=== PATIENT | female | born 1995 | race Caucasian/White ===

== ENCOUNTER 2017-12-05 22:22 | Emergency (ER) | payer OTHER ==
[2017-12-05] MEDS ORDERED: ONDANSETRON 4 MG/2 ML VIAL IVP ONE (22:57)
[2017-12-05] MEDS ORDERED: ONDANSETRON 4 MG/2 ML VIAL ONE (22:57)
[2017-12-05] MEDS ORDERED: NS 1,000 ML IV ONE (22:57)
--- NOTE | 2017-12-05 23:01 | EDPHY ---
H & P Smoking Status: Never smoked Time Seen by Provider: 12/05/17 22:34 HPI/ROS: CHIEF COMPLAINT: Nausea, vomiting, chest pain HISTORY OF PRESENT ILLNESS: 22-year-old female presents to the emergency department with nausea vomiting and anterior chest pain. She states the pain in her chest began yesterday when she was "just sitting there ". It is been intermittent. She was able to work yesterday. She states today the pain became worse and she began vomiting. She has vomited at least 6 times. No back pain. No real chest pain but does feel chest tightness. Really no abdominal pain. No fevers or chills. She works as a [employer] at a [employer]. She says multiple coworkers are also sick. Denies headache. Denies any reported trauma. She did get a flu shot this year. REVIEW OF SYSTEMS: Constitutional: No fever, no chills. Eyes: No double or blurry vision. ENT: No sore throat. Respiratory: No cough, no shortness of breath. Cardiac: Chest pain as above Gastrointestinal: Vomiting. No diarrhea or abdominal. Genitourinary: No dysuria. Musculoskeletal: No neck or back pain. Skin: No rashes. Neurological: No headache. (Sayra Gao) Past Medical/Surgical History: IUD (Sayra Gao M) Social History: Single (Sayra Gao) Physical Exam: General Appearance: Alert, mild to moderate distress. 98% on room air. Vital signs are stable. Vomiting. Eyes: Pupils equal and round. Extraocular motions are all intact. ENT: Mouth: Mucous membranes moist. Respiratory: No wheezing, rhonchi, or rales, lungs are clear to auscultation. On a to reproduce pain with palpation to the anterior aspect of the chest. No palpable crepitus or other bony abnormality. Cardiovascular: Regular rate and rhythm. Gastrointestinal: Abdomen is soft and nontender, no masses, no rebound or guarding, bowel sounds normal. Neurological: Alert and oriented x 3, cranial nerves II through XII grossly intact Skin: Warm and dry, no rashes. Musculoskeletal: Nontender to palpate along the cervical, thoracic or lumbar spine. Neck is supple. Extremities: Full range of motion and no peripheral edema. Psychiatric: Patient is oriented X 3, there is no agitation. (Rosin,Sayra M) Constitutional: Initial Vital Signs Temperature (C) 36.8 C 12/05/17 22:25 Heart Rate 71 12/05/17 22:25 Respiratory Rate 18 12/05/17 22:25 Blood Pressure 132/92 H 12/05/17 22:25 O2 Sat (%) 98 12/05/17 22:25 O2 Delivery Mode Room Air Allergies/Adverse Reactions: No Known Allergies Allergy (Unverified 12/05/17 22:25) Home Medications: Medication Instructions Recorded Levora-28 Tablet 12/05/17 Zoloft 25mg (*) 12/05/17 Medical Decision Making - Diagnostics Imaging: I viewed and interpreted images myself - Diagnostics Imaging Results: Imaging Impressions Chest X-Ray 12/06/17 00:09 IMPRESSION: Normal chest x-ray. ED Course/Re-evaluation: 22-year-old female presents to the emergency department with multiple episodes of nausea vomiting chest pain. Patient's abdomen is completely benign. She has no pain with palpation. I doubt acute appendicitis. I do not think imaging studies are indicated at this time of the abdomen and pelvis. The patient is having anterior chest pain. She does not abuse drugs or alcohol. She does not smoke cigarettes. Chest x-ray was ordered and reveals no evidence of pneumomediastinum, pneumothorax or pneumonia. Patient required IV Zofran and ultimately IV Phenergan for her nausea and vomiting. She received IV normal saline. She was feeling better. Case was discussed with Dr. Glenroy Goldstein, secondary supervising physician, who will assume care of this patient at 2:30 a.m. for disposition and plan. (Sayra Gao) Differential Diagnosis: Including but not limited to gastroenteritis, dehydration, electrolyte abnormality, pneumomediastinum, pneumonia, acute appendicitis, intrauterine , substance abuse (Sayra Gao) - Data Points Laboratory Results: Laboratory Results 12/05/17 22:55 12/05/17 22:55 Medications Given: Discontinued Medications Sodium Chloride (Ns) 1,000 mls @ 0 mls/hr IV ONCE ONE PRN Reason: Wide Open Stop: 12/05/17 22:58 Last Admin: 12/05/17 23:01 Dose: 1,000 mls Sodium Chloride (Ns) 1,000 mls @ 0 mls/hr IV ONCE ONE PRN Reason: Wide Open Stop: 12/06/17 02:05 Last Admin: 12/06/17 02:05 Dose: 1,000 mls Ondansetron HCl (Zofran) 4 mg IVP EDNOW ONE Stop: 12/05/17 22:58 Last Admin: 12/05/17 23:00 Dose: 4 mg Ondansetron HCl (Zofran) 4 mg IVP EDNOW ONE Stop: 12/06/17 00:16 Last Admin: 12/06/17 00:16 Dose: 4 mg Ondansetron HCl (Zofran Odt 4 Mg Prepack#2) 1 btl TAKEHOME EDNOW ONE Stop: 12/06/17 03:24 Last Admin: 12/06/17 03:24 Dose: 1 btl Promethazine HCl (Phenergan) 12.5 mg IVP EDNOW ONE Stop: 12/06/17 01:59 Last Admin: 12/06/17 02:01 Dose: 12.5 mg Departure - Departure Disposition: Home, Routine, Self-Care Clinical Impression: Nausea & vomiting Qualifiers: Vomiting type: unspecified Vomiting Intractability: non-intractable Qualified Code(s): R11.2 - Nausea with vomiting, unspecified Condition: Good Instructions: Ondansetron (By mouth), Acute Nausea and Vomiting (ED) Additional Instructions: You may take ondansetron every 8 hr as needed for nausea vomiting. Return to the emergency depart for increasing chest pain, shortness of breath, fevers, chills, uncontrolled nausea vomiting, abdominal pain or any other concerns.
[2017-12-05 23:02] LABS: PLATELET COUNT 360 10^3/uL (150-400)
[2017-12-05 23:12] VITALS: TEMP 97.9
[2017-12-06] MEDS ORDERED: ONDANSETRON 4 MG/2 ML VIAL IVP ONE (00:15)
[2017-12-06] MEDS ORDERED: PROMETHAZINE HCL 25 MG/ML INJ IVP ONE (01:58)
[2017-12-06] MEDS ORDERED: PROMETHAZINE HCL 25 MG/ML INJ ONE (01:59)
[2017-12-06] MEDS ORDERED: NS 1,000 ML IV ONE (02:04)
[2017-12-06] MEDS ORDERED: ONDANSETRON 4MG PREPACK#2 BTL TAKEHOME ONE ×2 (03:18→03:23)
[2017-12-06 03:30] VITALS: BP 102/75; PULSE 74; RESP 16; O2SAT 96
== END 2017-12-06 03:27 | disposition home or self-care (01) ==
DX: R11.2 Nausea with vomiting, unspecified (principal)
CPT/HCPCS: 96374; J2405; J2550